=== PATIENT | male | born 1975 | race African-American/Black ===

== ENCOUNTER 2022-10-21 11:17 | Emergency (ER) | payer OTHER, SELFPAY ==
[2022-10-21] MEDS ORDERED: Ketorolac Tromethamine 30 MG/ML VIAL ONE (12:15)
== END 2022-10-21 12:36 | disposition home or self-care (01) ==
LOC: ERS 11:17
DX: M54.50 Low back pain, unspecified (principal); G89.29 Other chronic pain; I10 Essential (primary) hypertension; X50.0XXA Overexertion from strenuous movement or load, initial encounter; Y93.F2 Activity, caregiving, lifting; Y92.72 Chicken coop as the place of occurrence of the external cause; Z79.899 Other long term (current) drug therapy
CPT/HCPCS: 96372; 99283; J1885

== ENCOUNTER 2022-12-05 08:54 | Emergency (ER) | payer SELFPAY | END 2022-12-05 10:24 | disposition home or self-care (01) | LOC: ERS 08:54 | DX: J06.9 Acute upper respiratory infection, unspecified (principal); I10 Essential (primary) hypertension; Z20.822 Contact with and (suspected) exposure to COVID-19 | CPT/HCPCS: 99284; U0003; U0005 ==